=== PATIENT | female | born 1945 | race Caucasian/White ===

== ENCOUNTER 2017-12-25 07:01 | Day surgery (SDC) | payer MEDICARE, OTHER ==
[2017-12-25] MEDS ORDERED: DIPHENHYDRAMINE 50 MG CAP PO (08:00)
[2017-12-25] MEDS ORDERED: FAMOTIDINE 20 MG TAB PO (08:00)
[2017-12-25] MEDS ORDERED: DIAZEPAM 5 MG TAB PO (08:00)
[2017-12-25 08:03] LABS: ADD MAN DIFF? NO
[2017-12-25 08:12] LABS: BASOPHIL # 0.1 10^3/ul (0.0-0.1); BASOPHILS % 0.7 % (0.0-2.0); EOSINOPHILS # 0.1 10^3/ul (0.0-0.5); HEMATOCRIT 40.2 % (37.0-47.0); HEMOGLOBIN 13.7 g/dl (12.0-16.0); LYMPHOCYTES # 1.3 10^3/ul (0.8-2.9); LYMPHOCYTES % 18.2 % (15.0-51.0); MEAN CORPUSCULAR HEMOGLOBIN 29.5 pg (29.0-33.0); MEAN CORPUSCULAR HGB CONC 34.1 g/dl (32.0-37.0); MEAN CORPUSCULAR VOLUME 86.6 fl (82.0-101.0); MEAN PLATELET VOLUME 10.2 fl (7.4-10.4); MONOCYTE # 0.5 10^3/ul (0.3-0.9); NEUTROPHILS % 71.7 % (39.0-77.0); PLATELET COUNT 293 10^3/UL (140-415); RED BLOOD COUNT 4.64 10^6/ul (4.20-5.40); RED CELL DISTRIBUTION WIDTH 13.5 % (11.5-14.5)
[2017-12-25] MEDS ORDERED: LIDOCAINE 1% (MDV) 20 ML INJ (08:24)
[2017-12-25] MEDS ORDERED: HEPARIN 1000 UNITS/ML 10 ML INJ (08:24)
[2017-12-25] MEDS ORDERED: IODIXANOL LOCM 100 ML BTL (08:24)
[2017-12-25 08:25] LABS: ANION GAP 14 (8-16); CARBON DIOXIDE 26 mmol/L (21-31); CHLORIDE 108 mmol/L (97-110); CHOL/HDL RATIO 2.9 RATIO; CHOLESTEROL 165 mg/dl (100-200); GLUCOSE 107 mg/dl (70-220); HDL CHOLESTEROL 56 mg/dl (33-92); LDL CHOLESTEROL,CALCULATED 83 mg/dl; TRIGLYCERIDES 131 mg/dl (0-149)
[2017-12-25] MEDS ORDERED: NITROGLYCERIN (IC) 100 MCG/ML INJ (08:25)
[2017-12-25] MEDS ORDERED: FENTAnyl 50 MCG/ML VIAL (08:25)
[2017-12-25] MEDS ORDERED: MIDAZOLAM 1 MG/ML 2 ML INJ (08:25)
[2017-12-25] MEDS ORDERED: VERAPAMIL 5 MG INJ (08:25)
[2017-12-25 08:26] LABS: INR 0.93; PROTIME 12.6 Sec (11.9-14.9)
[2017-12-25 08:27] LABS: PARTIAL THROMBOPLASTIN TIME 33.4 Sec (25.0-35.0)
[2017-12-25 08:30] LABS: BLOOD UREA NITROGEN 8 mg/dl (7-20); CALCIUM 8.8 mg/dl (8.4-10.2); CREATININE 0.63 mg/dl (0.44-1.00); POTASSIUM 4.1 mmol/L (3.5-5.1); SODIUM 144 mmol/L (135-144)
[2017-12-25] MEDS ORDERED: AL HYDROX/MG HYDROX/SIMETH 30 ML CUP PO (11:00)
[2017-12-25] MEDS ORDERED: morphine 2 MG INJ IV (11:00)
[2017-12-25] MEDS ORDERED: ACETAMINOPHEN 325 MG TAB PO (11:00)
[2017-12-25] MEDS ORDERED: SOD CHLORIDE 0.9% 1,000 ML IV (11:00)
[2017-12-25] MEDS ORDERED: ONDANSETRON 4 MG INJ IV (11:00)
== END 2017-12-25 16:31 | disposition home or self-care (01) ==
LOC: SDS 07:01
DX: I25.10 Atherosclerotic heart disease of native coronary artery without angina pectoris (principal); I10 Essential (primary) hypertension
CPT/HCPCS: 71045; 80048; 80061; 85025; 85610; 85730; 93005; 93458